=== PATIENT | male | born 1965 | race African-American/Black ===

== ENCOUNTER 2020-05-19 07:11 | Day surgery (SDC) | payer OTHER ==
[2020-05-11 13:09] LABS: APPEARANCE,URINE SLIGHTLY-CLOUDY; BILIRUBIN,URINE NEGATIVE (NEGATIVE); COLOR,URINE YELLOW; GLUCOSE, URINE NEGATIVE (NEGATIVE); KETONES,URINE NEGATIVE (NEGATIVE); LEUKOCYTE ESTERASE,URINE NEGATIVE (NEGATIVE); NITRITE,URINE NEGATIVE (NEGATIVE); PROTEIN,URINE NEGATIVE (NEGATIVE); URINE SPECIFIC GRAVITY 1.028; UROBILINOGEN,URINE NEGATIVE mg/dL (<2.0)
[2020-05-19] MEDS ORDERED: CEFAZOLIN 2 GM/D5W RTU 2 GM/50 ML RTUPB IV PRN (07:17)
[2020-05-19] MEDS ORDERED: VANCOMYCIN HCL 1,000 MG in DEXTROSE 5%-WATER 250 ML IV PRN (07:18)
[2020-05-19] MEDS ORDERED: TRAMADOL HCL 50 MG TABLET PO PRN ×2 (07:19→14:38)
[2020-05-19] MEDS ORDERED: ACETAMINOPHEN 325 MG TABLET PO PRN (07:19)
[2020-05-19] MEDS ORDERED: CELECOXIB 200 MG CAPSULE PO PRN (07:19)
[2020-05-19] MEDS ORDERED: OXYCODONE HCL SR 10 MG TABLET PO PRN (07:19)
[2020-05-19] MEDS ORDERED: TRANEXAMIC ACID INJ/PF 1,000 MG/10 ML SDV IV PRN (07:20)
[2020-05-19] MEDS ORDERED: SCOPOLAMINE HYDROBROMIDE 1.5 MG PATCH.TD72 TD PRN (07:20)
[2020-05-19] MEDS ORDERED: PANTOPRAZOLE SODIUM 20 MG TABLET.DR PO PRN (07:20)
[2020-05-19] MEDS ORDERED: GABAPENTIN 100 MG CAPSULE PO PRN (07:21)
[2020-05-19] MEDS ORDERED: ONDANSETRON HCL INJ/PF 4 MG/2 ML SDV IV PRN (07:21)
[2020-05-19] MEDS ORDERED: OXYCODONE HCL SR 10 MG TABLET PO ONE (07:28)
[2020-05-19] MEDS ORDERED: ACETAMINOPHEN 325 MG TABLET ONE (07:28)
[2020-05-19] MEDS ORDERED: CELECOXIB 200 MG CAPSULE ONE (07:28)
[2020-05-19] MEDS ORDERED: CEFAZOLIN 2 GM/D5W RTU 2 GM/50 ML RTUPB IV ONE (07:28)
[2020-05-19] MEDS ORDERED: TRAMADOL HCL 50 MG TABLET ONE (07:28)
[2020-05-19] MEDS ORDERED: GABAPENTIN 100 MG CAPSULE ONE (07:29)
[2020-05-19] MEDS ORDERED: SCOPOLAMINE HYDROBROMIDE 1.5 MG PATCH.TD72 ONE (07:29)
[2020-05-19] MEDS ORDERED: PANTOPRAZOLE SODIUM 20 MG TABLET.DR PO ONE ×2 (07:29→16:00)
[2020-05-19] MEDS ORDERED: MIDAZOLAM 2 MG/2 ML INJ ONE (09:41)
[2020-05-19] MEDS ORDERED: TRANEXAMIC ACID INJ/PF 1,000 MG/10 ML SDV ONE (09:41)
[2020-05-19] MEDS ORDERED: PROPOFOL INJ 200 MG/20 ML VIAL IV ONE ×2 (09:42→13:02)
[2020-05-19] MEDS ORDERED: CEFAZOLIN INJ 1 GM VIAL ONE (09:59)
[2020-05-19] MEDS: LIDOCAINE 1% INJ-PF (10 MG/ML) 30 ML SDV ONE ×3 (10:49→12:11)
[2020-05-19] MEDS: BUPIVACAINE HCL 0.25 % INJ/PF (2.5 MG/1 ML) 30 ML VIAL ONE ×3 (10:49→12:11)
[2020-05-19] MEDS: KETOROLAC TROMETHAMINE INJ/PF 30 MG/1 ML SDV ONE ×3 (10:50→12:11)
[2020-05-19] MEDS: VANCOMYCIN HCL INJ 1000 MG VIAL ONE ×3 (10:51→12:12)
[2020-05-19] MEDS ORDERED: PROMETHAZINE HCL INJ 25 MG/1 ML VIAL IV PRN (11:08)
[2020-05-19] MEDS ORDERED: DIPHENHYDRAMINE HCL 50 MG/ML VIAL IV PRN (11:08)
[2020-05-19] MEDS ORDERED: FENTANYL CITRATE INJ/PF 100 MCG/2 ML AMPUL IV PRN (11:08)
[2020-05-19] MEDS ORDERED: MEPERIDINE HCL/PF INJ 25 MG/1 ML DISP.SYRIN IV PRN (11:08)
--- NOTE | 2020-05-19 12:34 | Operative Report ---
Operative Report DATE OF SURGERY: 05/19/20 PREOPERATIVE DIAGNOSIS: Severe primary left hip osteoarthritis POSTOPERATIVE DIAGNOSIS: Severe primary left hip osteoarthritis OPERATION: Left total hip arthroplasty SURGEON: SONNY GUY JR ANESTHESIA: Spinal COMPLICATIONS: None ESTIMATED BLOOD LOSS: 300 cc PROCEDURE: Implants: Wilmer Accolade 2 size 6 femoral stem with standard offset, a Trident size 54 cup, and a standard liner, a standard neck length 36 mm ceramic head BRIEF HISTORY: 55 year old male with severe degenerative arthritis of left hip, which has failed conservative treatment and has elected for a total hip arthroplasty. Risks include but are not limited to bleeding, infection, anesthesia, , injury to nerve or vessel, pain, scar, leg length inequality, dislocation, future surgery, and blood clots. Patient read through the pre-op counseling form and signed and consented for surgery on their left hip. OPERATIVE PROCEDURE: Patient was brought to the operating room on and underwent spinal anesthesia. 3 grams of Ancef and 1 g of vancomycin was given. After proper anesthesia was obtained, patient was positioned, padded, prepped, and draped in the usual sterile fashion on the operating room table. Appropriate time out was performed. An anterior approach to the hip was undertaken with meticulous hemostasis through the deep interval. A capsulectomy was performed followed by exposure of the femoral neck. The femoral neck was cut in line with the femoral broach and the femoral head was removed. The acetabulum was then exposed with three retractors in an atraumatic fashion. Soft tissue and osteophytes were removed. Medialization reaming was performed followed by anatomic reaming up to accept a 54 mm acetabulum. Wound was irrigated with dilute betadyne solution and the 54 mm acetabulum was impacted into correct position and stability checked by manipulating the impaction handle which rocked the pelvis. A standard liner was impacted into the shell with good stability. Potential impinging osteophytes were removed. Attention was then directed toward the femur, which was exposed with two retract ors in an atraumatic fashion. A bone hook was placed to carefully perform releases along the superior capsule until the femur was safely delivered through the wound. A box bender was utilized followed by lateralization rasping and then broaching up to accept a size 6 femur. With a standard offset neck and a 0 neck length size 36 head, stability was good in flexion and extension with equal leg lengths. The real standard offset femur was impacted into a copiously irrigated femoral canal. A 36 mm 0 neck length head was impacted on a clean dry femoral taper. The hip was irrigated and reduced, further irrigation with antibiotic solution, betadine solution, then antibiotic solution. Bleeders were coagulated with bovie cautery. The fascia was then closed with number 2 Stratofix; the subcutaneous tissue closed with interrupted inverted 2-0 monocryl then running 3-0 monocryl subcuticular. Dermabond skin glue was applied followed by a silver dressing. All needle sponge and instrument counts were correct. Patient was awakened from sedation anesthesia and taken to recovery room in good condition. Thank you, Sonny Guy, DO
[2020-05-19] MEDS ORDERED: DEXAMETHASONE SOD PHOS INJ 10 MG/1 ML VIAL ONE (13:22)
[2020-05-19] MEDS ORDERED: OXCARBAZEPINE 600 MG PO SCH (14:00)
--- NOTE | 2020-05-19 14:10 | RADIOLOGY REPORT (SQ) ---
EXAM DESCRIPTION: HIP LEFT AP/LATERAL IMAGES COMPLETED DATE/TIME: 05/19/2020 12:48 pm REASON FOR STUDY: POST OP PACU M25.562 PAIN IN LEFT KNEE M16.12 UNILATERAL PRIMARY OSTEOARTHRITIS, LEFT HIP COMPARISON: Pelvis radiograph, 05/11/2020 NUMBER OF VIEWS: Two views. TECHNIQUE: AP pelvis and additional frog-leg view of the left hip. LIMITATIONS: None. FINDINGS: MINERALIZATION: Normal. LEFT HIP: Left hip arthroplasty with components in good alignment. No acute fracture, lytic or blast ic bone lesion. RIGHT HIP: Moderate osteoarthritis at the right hip. No fracture or dislocation. PUBIS AND ISCHIUM: No fracture. PELVIS: No fracture. SACRUM: No fracture or dislocation. No worrisome bone lesions. LOWER LUMBAR SPINE: Spondylosis and degenerative disc disease. SOFT TISSUES: Expected postoperative changes in the soft tissues. Surgical clips in the pelvis. Percy cified pelvic phleboliths. OTHER: No other significant finding. IMPRESSION: New left hip arthroplasty with components in good alignment. TECHNICAL DOCUMENTATION: JOB ID: [id number] 2010 [employer]- All Rights Reserved Reading location - IP/workstation name: [email or web address]
[2020-05-19] MEDS ORDERED: OXYCODONE HCL IR 5 MG TABLET PO PRN ×2 (14:36→14:37)
[2020-05-19] MEDS ORDERED: MORPHINE SULFATE 10 MG/ML INJ IV PRN (14:37)
[2020-05-19] MEDS ORDERED: ZOLPIDEM TARTRATE 5 MG TABLET PO PRN (14:41)
[2020-05-19] MEDS ORDERED: DIPHENHYDRAMINE HCL 25 MG CAPSULE PO PRN (14:41)
[2020-05-19] MEDS ORDERED: DOCUSATE SODIUM 100 MG CAPSULE PO PRN (14:42)
--- NOTE | 2020-05-19 14:42 | RADIOLOGY REPORT (SQ) ---
EXAM DESCRIPTION: HIP IN OPERATING RM; NO CHG FLUORO IMAGES COMPLETED DATE/TIME: 05/19/2020 2:27 pm REASON FOR STUDY: LEFT HIP TOTAL ARTHROPLASTY ASSISTED WITH FLUORO IN OR M25.562 PAIN IN LEFT KNEE M16.12 UNILATERAL PRIMARY OSTEOARTHRITIS, LEFT HIP COMPARISON: None. FLUOROSCOPY TIME: 0.1 minute. 3 images saved to PACS. TECHNIQUE: Intra-operative images acquired during surgical procedure to evaluate progress. NUMBER OF IMAGES: 3 images. LIMITATIONS: None. FINDINGS: Images of the hip acquired during the procedure. IMPRESSION: IMAGE(S) OBTAINED DURING PROCEDURE. COMMENT: Quality ID [id number]: Final reports for procedures using fluoroscopy that document radiation exp osure indices, or exposure time and number of fluorographic images (if radiation exposure indices are not available) Please consult full operative report of the attending physician for description of the procedure. TECHNICAL DOCUMENTATION: JOB ID: [id number] 2010 [employer]- All Rights Reserved Reading location - IP/workstation name: [email or web address]
--- NOTE | 2020-05-19 14:42 | RADIOLOGY REPORT (SQ) ---
EXAM DESCRIPTION: HIP IN OPERATING RM; NO CHG FLUORO IMAGES COMPLETED DATE/TIME: 05/19/2020 2:27 pm REASON FOR STUDY: LEFT HIP TOTAL ARTHROPLASTY ASSISTED WITH FLUORO IN OR M25.562 PAIN IN LEFT KNEE M16.12 UNILATERAL PRIMARY OSTEOARTHRITIS, LEFT HIP COMPARISON: None. FLUOROSCOPY TIME: 0.1 minute. 3 images saved to PACS. TECHNIQUE: Intra-operative images acquired during surgical procedure to evaluate progress. NUMBER OF IMAGES: 3 images. LIMITATIONS: None. FINDINGS: Images of the hip acquired during the procedure. IMPRESSION: IMAGE(S) OBTAINED DURING PROCEDURE. COMMENT: Quality ID [id number]: Final reports for procedures using fluoroscopy that document radiation exp osure indices, or exposure time and number of fluorographic images (if radiation exposure indices are not available) Please consult full operative report of the attending physician for description of the procedure. TECHNICAL DOCUMENTATION: JOB ID: [id number] 2010 [employer]- All Rights Reserved Reading location - IP/workstation name: [email or web address]
[2020-05-19] MEDS ORDERED: NORMAL SALINE 1000 ML 1,000 ML IV PRN (14:43)
[2020-05-19] MEDS ORDERED: ONDANSETRON 4 MG TAB.RAPDIS PO PRN (14:44)
[2020-05-19] MEDS ORDERED: ACETAMINOPHEN 325 MG TABLET PO SCH (15:00)
--- NOTE | 2020-05-19 16:21 | Discharge Summary ---
Discharge Summary (SDC) - Discharge Final Diagnosis: Severe Left hip primary Osteoarthritis Date of Surgery: 05/19/20 Discharge Date: 05/19/20 Condition: Stable Treatment or Instructions: Full details of postoperative instructions have been provided to the patient in the clinic. Additionally they should maintain their bandage in place for 5 to 7 days, and then changed to a dry dressing. They can take showers with this occlusive dressing but any further dressing should also be occlusive. No showers with the wound unprotected until cleared by me in the clinic. If the bandage falls off early or become saturated they can change as needed to another occlusive dressing. Discharge Diet: As Tolerated Respiratory Treatments at Home: Deep Breathing/Coughing Discharge Activity: Activity As Tolerated, No Driving, Keep Legs Elevated, No Lifting/Push/Pulling, Slowly Increase Activity, No tub bath, Walk Frequently Adaptive Devices on Discharge: Rolling Walker, Bedside Commode Report the Following to Your Physician Immediately: Shortness of Breath, Fever over 101 Degrees, Drainage-Yellow
[2020-05-19 16:58] VITALS: BP 148/83
[2020-05-19] MEDS ORDERED: HYDROMORPHONE HCL 2 MG PO SCH (18:00)
[2020-05-19] MEDS ORDERED: CEFAZOLIN SODIUM 2 GM in DEXTROSE 5%-WATER 100 ML IV SCH (18:00)
[2020-05-19] MEDS ORDERED: GABAPENTIN 100 MG CAPSULE PO SCH (18:00)
[2020-05-19] MEDS ORDERED: KETOROLAC TROMETHAMINE INJ/PF 30 MG/1 ML SDV IV SCH (22:00)
[2020-05-19] MEDS ORDERED: CARVEDILOL 12.5 MG TABLET PO SCH (22:00)
[2020-05-20] MEDS ORDERED: HYDROCHLOROTHIAZIDE 25 MG TABLET PO SCH (08:00)
[2020-05-20] MEDS ORDERED: AMLODIPINE BESYLATE 5 MG TABLET PO SCH (10:00)
[2020-05-20] MEDS ORDERED: LISINOPRIL 10 MG TABLET PO SCH (10:00)
[2020-05-20] MEDS ORDERED: CHOLECALCIFEROL (D3) 1,000 UNIT (25 MCG) TABLET PO SCH (10:00)
[2020-05-20] MEDS ORDERED: (PENDING PHARMACY ID) (Cyanocobalamin (Vitamin B-12) [Vitamin B12] 1,000 MCG) PO SCH (10:00)
[2020-05-20] MEDS ORDERED: CYANOCOBALAMIN (VITAMIN B-12) 1,000 MCG TABLET PO SCH (10:00)
[2020-05-20] MEDS ORDERED: ASPIRIN 325 MG TABLET, ENT COATED PO SCH (10:00)
[2020-05-20] MEDS ORDERED: ALLOPURINOL 100 MG TABLET PO SCH (10:00)
[2020-05-20] MEDS ORDERED: (PENDING PHARMACY ID) (Lisinopril [Lisinopril] 20 MG) PO SCH (10:00)
[2020-05-20] MEDS ORDERED: POLYETHYLENE GLYCOL 3350 POWDER 17 GM/1 PACKET PO SCH (10:00)
[2020-05-20] MEDS ORDERED: ZINC 50 MG PO SCH (10:00)
[2020-05-21] MEDS ORDERED: CELECOXIB 200 MG CAPSULE PO SCH (10:00)
== END 2020-05-19 17:33 | disposition home health service (06) ==
LOC: OROUT 07:11 → 4S 14:42 → OROUT 17:33
PROVIDERS: ATTEND Orthopaedic Surgery
DX: M16.12 Unilateral primary osteoarthritis, left hip (principal); Z03.818 Encounter for observation for suspected exposure to other biological agents ruled out; Z79.899 Other long term (current) drug therapy; Z79.891 Long term (current) use of opiate analgesic; Z79.82 Long term (current) use of aspirin; I10 Essential (primary) hypertension
CPT/HCPCS: 27130; 36415; 84132; 87635; 81001; 73502; 73501; 97530; 97110; 97116; 97163; 97535; 97166; J2250; J0690 ×2; J3490 ×3; J1885; J7060; J2704; J3370; J1100; C9803; C1776